=== PATIENT | male | born 1975 | race Two or more races ===

== ENCOUNTER 2017-05-24 11:26 | Emergency (ER) | payer SELFPAY ==
[~2017-05-24] VITALS: Ht 172.7 cm; Wt 83.9 kg
[2017-05-24 11:40] VITALS: BP 119/78
[2017-05-24] MEDS ORDERED: AMOX500C PO (11:49)
[2017-05-24] MEDS ORDERED: CIPR7.5D RIGHT EAR (11:49)
--- NOTE | 2017-05-24 11:49 | PHYS DOC ---
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 He states that he works in [employer] and thought that there may be something that has lodged into his ear. Patient does have decreased hearing out of the right ear. He denies any drainage, just stays had slight fever. He denies any cough or congestion. Review of Systems Review of Systems Constitutional: Denies fever or chills [] Eyes: Denies change in visual acuity, redness, or eye pain [] HENT: Denies nasal congestion or sore throat. Complaint of right ear pain Respiratory: Denies cough or shortness of breath [] Cardiovascular: No additional information not addressed in HPI [] GI: Denies abdominal pain, nausea, vomiting, bloody stools or diarrhea [] : Denies dysuria or hematuria [] Musculoskeletal: Denies back pain or joint pain [] Integument: Denies rash or skin lesions [] Neurologic: Denies headache, focal weakness or sensory changes [] Endocrine: Denies polyuria or polydipsia [] Allergies Allergies Allergies Coded Allergies Type Severity Reaction Last Updated Verified No Known Drug Allergies 11/20/15 No Physical Exam Physical Exam Constitutional: Well developed, well nourished, no acute distress, non-toxic appearance. [] HENT: Normocephalic, atraumatic, bilateral external ears normal, oropharynx moist, no oral exudates, nose normal. [Numbering appears to be normal, right tympanic membrane appears to be red as well as the ear canal being red. It does appear to be swollen. No drainage or discharge coming from the site. Eyes: PERRLA, EOMI, conjunctiva normal, no discharge. [] Neck: Normal range of motion, no tenderness, supple, no stridor. [] Cardiovascular:Heart rate regular rhythm, no murmur [] Lungs & Thorax: Bilateral breath sounds clear to auscultation [] Skin: Warm, dry, no erythema, no rash. [] Back: No tenderness Extremities: No tenderness, no cyanosis, no clubbing, ROM intact, no edema. [] Neurologic: Alert and oriented X 3, normal motor function, normal sensory function, no focal deficits noted. [] Psychologic: Affect normal, judgement normal, mood normal. [] EKG EKG [] Radiology/Procedures Radiology/Procedures [] Course & Med Decision Making Course & Med Decision Making Pertinent Labs and Imaging studies reviewed. (See chart for details) Patient will be treated for an otitis externa as well as a tightness media. He will be provided with oral antibiotics as well as eardrops. He was recommended Tylenol) for pain and discomfort. He was also recommended warm moist packs to the right ear. Patient was provided with signs and symptoms to return back to emergency department. He was encouraged to follow-up with the primary care physician in the next 3-5 days. Patient agrees with discharge instructions treatment regimens and follow-up recommendations. Patient's family member at bedside was the historical interpreter as patient speaks Turkmen only. All history of present illness information and discharge instructions was provided through the historical interpreter. Dragon Disclaimer Dragon Disclaimer This electronic medical record was generated, in whole or in part, using a voice recognition dictation system. Departure Departure Impression: Primary Impression: Otitis externa of right ear Additional Impression: Otitis media of right ear Disposition: 01 HOME, SELF-CARE Condition: STABLE Referrals: NO PCP (PCP) Patient Instructions: Otitis Externa, [id number], Otitis Media, Adult, Easy- to-Read Additional Instructions: Activity as tolerated. Tylenol or ibuprofen for fever chills and generalized aches and discomfort. Warm moist packs to the right ear area several times a day. Medication as prescribed. Follow-up through primary care physician in the next 3-5 days. Return back to emergency prior signs symptoms of become worse. Scripts Ciprofloxacin Hcl/Dexameth (CIPRODEX OTIC SUSPENSION) 7.5 Ml Drops.susp 4 DROP RIGHT EAR BID, #7.[address] in the right ear for the next 7 days. Prov: JOSUE FIELDS APRN 05/24/17 Amoxicillin (AMOXICILLIN) 500 Mg Capsule 1 CAP PO BID, #20 CAP Prov: JOSUE FIELDS APRN 05/24/17 Problem Qualifiers JOSUE FIELDS APRN May 24, 2017 11:49
== END 2017-05-24 12:16 | disposition home or self-care (01) ==
LOC: ER 11:26
DX: H60.91 Unspecified otitis externa, right ear (principal); H66.91 Otitis media, unspecified, right ear
CPT/HCPCS: 99283